=== PATIENT | male | born 1965 | race Caucasian/White ===

== ENCOUNTER 2017-11-23 09:27 | Emergency (ER) | payer BC ==
[2017-11-23] MEDS ORDERED: Ketorolac Tromethamine 30 MG/ML VIAL ONE (10:27)
[2017-11-23] MEDS ORDERED: Morphine 4 MG/ML VIAL ONE (11:39)
--- NOTE | 2017-11-23 12:19 | RAD ---
LEFT KNEE 4 VIEWS: Date: 11/23/17 HISTORY: Pain. COMPARISON: None. FINDINGS: There is a large joint effusion with internal calcific debris. There is medial joint space narrowing with osteophyte formation, as well as subchondral eburnation and flattening of the articular surface. 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 IMPRESSION: 1. Calcinosis of the lateral meniscus, but large effusion containing calcific bodies can be seen wit h calcium pyrophosphate deposition disease. 2. 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 POS: C
== END 2017-11-23 13:25 | disposition home or self-care (01) ==
LOC: ERS 09:27
DX: M25.462 Effusion, left knee (principal); I10 Essential (primary) hypertension; X50.1XXA Overexertion from prolonged static or awkward postures, initial encounter; Y93.01 Activity, walking, marching and hiking
CPT/HCPCS: 96372; J1885; J2270